=== PATIENT | male | born 1990 | race African-American/Black ===

== ENCOUNTER 2020-09-29 11:42 | Emergency (ER) | payer MEDICAID ==
[~2020-09-29] VITALS: Ht 172.7 cm; Wt 118.0 kg
[2020-09-29] MEDS ORDERED: FLUORESCEIN SODIUM 1MG/STRIP RIGHTEYE ONE (12:00)
[2020-09-29] MEDS ORDERED: BALANCED SALT IRRIG SOLN 15ML TOP ONE (12:00)
[2020-09-29] MEDS ORDERED: ACETAMINOPHEN 325MG TABLET PO ONE (12:00)
[2020-09-29] MEDS ORDERED: TETANUS, DIPHTHERIA, PERTUSSIS VAC/PF 0.5ML (>7YR OLD) IM ONE (12:00)
[2020-09-29] MEDS ORDERED: BACITRACIN ZINC OINT UDPKT TOP ONE (12:00)
[2020-09-29] MEDS ORDERED: TETRACAINE 0.5% OPHTH DROPS 4ML RIGHTEYE ONE (12:00)
[2020-09-29 19:30] VITALS: BP 152/86
== END 2020-09-29 20:03 | disposition short-term general hospital (02) ==
LOC: ER 11:42
DX: S02.31XA Fracture of orbital floor, right side, initial encounter for closed fracture (principal); S02.40CA Maxillary fracture, right side, initial encounter for closed fracture; S01.111A Laceration without foreign body of right eyelid and periocular area, initial encounter; Y04.0XXA Assault by unarmed brawl or fight, initial encounter; Y93.89 Activity, other specified; Y92.89 Other specified places as the place of occurrence of the external cause
CPT/HCPCS: 12011; 70450; 70486; 90471; 90715; 99285; A4217; Z7610

== ENCOUNTER 2022-04-07 06:20 | Emergency (ER) | payer MEDICAID, OTHER ==
[~2022-04-07] VITALS: Ht 170.2 cm; Wt 133.2 kg
[2022-04-07 06:33] VITALS: BP 150/99
[2022-04-07] MEDS ORDERED: OFLO5DRO4 RIGHT EAR (07:11)
== END 2022-04-07 07:15 | disposition home or self-care (01) ==
LOC: ER 06:20
DX: T16.1XXA Foreign body in right ear, initial encounter (principal); Z98.890 Other specified postprocedural states; X58.XXXA Exposure to other specified factors, initial encounter; Y93.E8 Activity, other personal hygiene; Y92.018 Other place in single-family (private) house as the place of occurrence of the external cause
CPT/HCPCS: 69200; 99284